=== PATIENT | male | born 1970 | race African-American/Black ===

== ENCOUNTER 2021-05-15 09:06 | Emergency (ER) | payer MEDICAID ==
[~2021-05-15] VITALS: Ht 170.2 cm; Wt 99.8 kg
--- NOTE | 2021-05-15 09:23 | NUR ---
Pt triaged and placed in waiting room.
[2021-05-15 09:24] VITALS: BP_SYST 149
--- NOTE | 2021-05-15 09:55 | NUR ---
Patient to ER bed 1 to gown for evaluation. Side rails up. Report given to KAILASH Mendez.
--- NOTE | 2021-05-15 10:13 | NUR ---
TO CT SCAN
[2021-05-15 10:47] LABS: BILIRUBIN,URINE NEGATIVE (NEGATIVE); BLOOD, URINE 3+ (NEGATIVE); COLOR,URINE YELLOW (YELLOW); GLUCOSE,URINE NEGATIVE (NEGATIVE); KETONES,URINE NEGATIVE (NEGATIVE); LEUKOCYTE ESTERASE ,URINE NEGATIVE (NEGATIVE); NITRITE, URINE NEGATIVE (NEGATIVE); PROTEIN URINE NEGATIVE (NEGATIVE); UROBILINOGEN,URINE 0.2 (0.2-1.0)
[2021-05-15 10:50] LABS: CLARITY/URINE CLOUDY (CLEAR)
[2021-05-15 10:53] LABS: ANION GAP 9 (5-15); BASOPHILS % (AUTO) 0.7 % (0.0-2.0); CALCIUM 9.1 mg/dL (8.4-11.0); CHLORIDE 102 mmol/L (98-107); CREATININE 1.09 mg/dL (0.55-1.30); EOSINOPHILS # (AUTO) 0.2 K/uL (0.0-0.4); EOSINOPHILS % (AUTO) 2.3 % (0.0-4.0); GLUCOSE 106 mg/dL (70-99); HEMATOCRIT 44.7 % (36-54); LYMPHOCYTES # (AUTO) 1.3 K/uL (1.0-5.5); LYMPHOCYTES % (AUTO) 19.7 % (20.5-51.5); MEAN CORPUSCULAR HEMOGLOBIN 29 pg (27-31); MEAN CORPUSCULAR HGB CONC 34 % (32-36); MEAN CORPUSCULAR VOLUME 86 fL (79.0-98.0); MONOCYTES # (AUTO) 0.5 K/uL (0.0-1.0); MONOCYTES % (AUTO) 7.5 % (1.7-9.3); NEUTROPHILS # (AUTO) 4.6 K/uL (1.8-7.7); NEUTROPHILS % (AUTO) 69.8 % (40.0-70.0); PLATELET COUNT (AUTO) 199 K/uL (130-430); POTASSIUM 4.4 mmol/L (3.5-5.1); RED BLOOD CELL COUNT(AUTO) 5.17 MIL/uL (4.2-6.2); RED CELL DISTRIBUTION WIDTH 14.4 % (9.0-15.0); SODIUM SERUM 137 mmol/L (136-145); UREA NITROGEN, BLOOD 11 mg/dL (8-21); WHITE BLOOD COUNT (AUTO) 6.6 K/uL (4.8-10.8)
[2021-05-15 10:54] LABS: GFR AFRICAN AMERICAN 92 mL/min (>90)
[2021-05-15 10:56] LABS: INR 0.9 (0.80-1.20); PROTHROMBIN TIME 9.6 SECS (9.5-12.5)
[2021-05-15 10:58] LABS: ALANINE AMINOTRANSFERASE 54 U/L (12-78); ALBUMIN 3.9 g/dL (3.4-4.8); AMYLASE 130 U/L (0-100); ASPARTATE AMINOTRANSFERASE 47 U/L (10-37); LIPASE 330 U/L (73-393); TOTAL BILIRUBIN 0.5 mg/dL (0.0-1.0)
[2021-05-15 11:04] LABS: C-REACTIVE PROTEIN QUANT < 0.2 mg/dL (0-0.5)
[2021-05-15 11:19] VITALS: BP_SYST 137
--- NOTE | 2021-05-15 11:26 | NUR ---
Patient given written and verbal discharge instructions and verbalizes understanding. EMANUEL OLIVEIRA MD discussed with patient the results and treatment provided. Patient in stable condition. ID arm band removed. Patient educated on pain management and to follow up with PMD. Pain Scale 0. Opportunity for questions provided and answered. Medication side effect fact sheet provided.
[2021-05-15 11:46] LABS: BACTERIA,URINE FEW /HPF (None Seen); RBC,URINE 20-50 /HPF (0-3); WBC,URINE 0-3 /HPF (0-3)
== END 2021-05-15 11:19 | disposition home or self-care (01) ==
LOC: SED 09:06
DX: R31.9 Hematuria, unspecified (principal)
CPT/HCPCS: 36415; 76376; 80053; 81000; 82150; 83605; 83690; 85025; 85610-TC; 85730-TC; 86140; 99284

== ENCOUNTER 2023-03-11 06:08 | Observation (INO) | payer MEDICAID ==
[2023-03-11] VITALS (7 sets, daily range): BP systolic 139–168; PULSE 84–98; RESP 16–20; TEMP 97–98.3; O2SAT 99
[~2023-03-11] VITALS: Ht 172.7 cm; Wt 108.9 kg
[2023-03-11 07:20] LABS: BASOPHILS # (AUTO) 0.1 K/uL (0.0-0.2); BASOPHILS % (AUTO) 1.5 % (0.0-2.0); EOSINOPHILS # (AUTO) 0.1 K/uL (0.0-0.4); EOSINOPHILS % (AUTO) 1.9 % (0.0-4.0); HEMATOCRIT 38.7 % (36-54); HEMOGLOBIN 12.3 g/dL (14.0-18.0); LYMPHOCYTES # (AUTO) 1.9 K/uL (1.0-5.5); LYMPHOCYTES % (AUTO) 31.5 % (20.5-51.5); MEAN CORPUSCULAR HEMOGLOBIN 25 pg (27-31); MEAN CORPUSCULAR HGB CONC 32 % (32-36); MEAN CORPUSCULAR VOLUME 79 fL (79.0-98.0); MONOCYTES # (AUTO) 0.5 K/uL (0.0-1.0); MONOCYTES % (AUTO) 8.7 % (1.7-9.3); NEUTROPHILS # (AUTO) 3.3 K/uL (1.8-7.7); NEUTROPHILS % (AUTO) 56.4 % (40.0-70.0); PLATELET COUNT (AUTO) 252 K/uL (130-430); RED BLOOD CELL COUNT(AUTO) 4.88 MIL/uL (4.2-6.2); RED CELL DISTRIBUTION WIDTH 19.1 % (9.0-15.0); WHITE BLOOD COUNT (AUTO) 5.9 K/uL (4.8-10.8)
[2023-03-11 07:30] LABS: CALCIUM 7.8 mg/dL (8.4-11.0); CREATININE 0.79 mg/dL (0.55-1.30)
[2023-03-11 07:35] LABS: ALBUMIN 3.6 g/dL (3.4-4.8); TOTAL BILIRUBIN 0.3 mg/dL (0.0-1.0); TOTAL PROTEIN, SERUM 8.1 g/dL (6.4-8.3)
[2023-03-11 08:01] LABS: INR 4.5 (0.80-1.20); PROTHROMBIN TIME 43.4 SECS (9.5-12.5)
[2023-03-11 08:36] LABS: BARBITURATE, URINE NEGATIVE (NEG <=200)
[2023-03-11 08:37] LABS: BENZODIAZEPINE, URINE NEGATIVE (NEG <=150); CANNABINOID, URINE POSITIVE (NEG <=50); COCAINE, URINE NEGATIVE (NEG <=150); METHAMPHETAMINES SCREEN,URINE NEGATIVE (NEG <=500); PHENCYCLIDINE SCREEN,URINE NEGATIVE (NEG <=25); URINE AMPHETAMINE NEGATIVE (NEG <=500); URINE METHADONE NEGATIVE (NEG <=200)
[2023-03-11 08:38] LABS: OPIATE, URINE NEGATIVE (NEG <=100); URINE OXYCODONE SCREEN NEGATIVE (NEG <=100); URINE PROPOXYPHENE SCREEN NEGATIVE (NEG <=300)
[2023-03-11 08:39] LABS: UR TRICYCLIC ANTIDEPRESSANTS NEGATIVE (NEG <=300)
[2023-03-11] MEDS: NACL 0.9% 1,000 ML IV SCH ×2 (10:50→20:17)
[2023-03-11] MEDS ORDERED: ONDANSETRON HCL 4 MG/2 ML VIAL ONE (10:51)
[2023-03-11] MEDS ORDERED: ONDANSETRON HCL 4 MG/2 ML VIAL IVP ONE (11:00)
[2023-03-11] MEDS ORDERED: POTASSIUM CHLORIDE 20 MEQ TAB.PRT.SR PO PRN (11:30)
[2023-03-11] MEDS ORDERED: DOCUSATE SODIUM 100 MG CAPSULE PO PRN (11:30)
[2023-03-11] MEDS ORDERED: MUPIROCIN 2% TOPICAL OINTMENT 22 GM NS PRN (11:30)
[2023-03-11] MEDS ORDERED: ZOLPIDEM TARTRATE 5 MG TABLET PO PRN (11:30)
[2023-03-11] MEDS ORDERED: MAGNESIUM SULFATE 50 ML IV PRN (11:30)
[2023-03-11] MEDS ORDERED: ONDANSETRON HCL 4 MG/2 ML VIAL IVP PRN (11:30)
[2023-03-11] MEDS ORDERED: METOPROLOL TARTRATE 25 MG TABLET PO ONE (11:45)
[2023-03-11] MEDS: chlordiazePOXIDE HCL 25 MG CAPSULE PO SCH ×2 (15:04→20:55)
[2023-03-11] MEDS: LORazepam 2 MG/ML VIAL IVP PRN ×2 (16:27→20:05)
[2023-03-11] MEDS: METOPROLOL TARTRATE 25 MG TABLET PO SCH (20:55)
[2023-03-12] VITALS: BP_SYST 141; PULSE 87; RESP 18; TEMP 97.6; O2SAT 98
[2023-03-12] MEDS: LORazepam 2 MG/ML VIAL IVP PRN ×3 (03:24→12:28)
[2023-03-12 06:09] LABS: BASOPHILS % (AUTO) 0.7 % (0.0-2.0); EOSINOPHILS # (AUTO) 0.1 K/uL (0.0-0.4); EOSINOPHILS % (AUTO) 1.6 % (0.0-4.0); HEMOGLOBIN 12.2 g/dL (14.0-18.0); LYMPHOCYTES # (AUTO) 1.7 K/uL (1.0-5.5); MEAN CORPUSCULAR HEMOGLOBIN 26 pg (27-31); MEAN CORPUSCULAR HGB CONC 32 % (32-36); MEAN CORPUSCULAR VOLUME 80 fL (79.0-98.0); MONOCYTES # (AUTO) 0.7 K/uL (0.0-1.0); MONOCYTES % (AUTO) 9.9 % (1.7-9.3); NEUTROPHILS # (AUTO) 4.2 K/uL (1.8-7.7); NEUTROPHILS % (AUTO) 61.8 % (40.0-70.0); PLATELET COUNT (AUTO) 216 K/uL (130-430); RED BLOOD CELL COUNT(AUTO) 4.78 MIL/uL (4.2-6.2); RED CELL DISTRIBUTION WIDTH 18.9 % (9.0-15.0); WHITE BLOOD COUNT (AUTO) 6.7 K/uL (4.8-10.8)
[2023-03-12 07:05] LABS: CALCIUM 8.1 mg/dL (8.4-11.0); CREATININE 0.92 mg/dL (0.55-1.30); POTASSIUM 3.8 mmol/L (3.5-5.1)
[2023-03-12] MEDS: chlordiazePOXIDE HCL 25 MG CAPSULE PO SCH (08:05)
[2023-03-12] MEDS: METOPROLOL TARTRATE 25 MG TABLET PO SCH (08:06)
[2023-03-12 08:09] VITALS: BP_SYST 161; PULSE 96; RESP 19; TEMP 97; O2SAT 99
[2023-03-12] MEDS ORDERED: FOLI-43 PO ×2 (10:18→16:13)
[2023-03-12] MEDS ORDERED: LIB25 PO (10:18)
[2023-03-12] MEDS ORDERED: THIA100T73 PO (10:18)
[2023-03-12 10:40] VITALS: BP_SYST 154; PULSE 87; RESP 18; TEMP 97
[2023-03-12] MEDS ORDERED: THIA100T70 PO (16:13)
== END 2023-03-12 15:05 | disposition home or self-care (01) ==
LOC: SED 06:08 → STU 10:18 → INTOOBSV 10:18 → STU 11:19
PROVIDERS: ADMIT General Practice; ATTEND General Practice
DX: F10.139 Alcohol abuse with withdrawal, unspecified (principal); K70.30 Alcoholic cirrhosis of liver without ascites; D68.4 Acquired coagulation factor deficiency; I10 Essential (primary) hypertension; F12.90 Cannabis use, unspecified, uncomplicated; Z79.899 Other long term (current) drug therapy
CPT/HCPCS: 96361 ×2; 96375; 96376 ×2; 80307; 80053; 82140; 83037; 85025 ×2; 85384; 85610; 85730; 36415 ×2; 99284; 96365; 96366; 80048; 83735; G0482; J2060 ×2; J2405; G0378 ×2; J3475; 96374; 99285